=== PATIENT | male | born 1965 | race Caucasian/White ===

== ENCOUNTER 2017-01-01 16:15 | Emergency (ER) | payer OTHER ==
[~2017-01-01] VITALS: Ht 182.9 cm; Wt 113.4 kg
[2017-01-01 16:26] VITALS: TEMP 36.8; Ht 182.9 cm; Wt 113.4 kg
[2017-01-01] MEDS ORDERED: IBUPROFEN 600 MG TAB PO STA (17:05)
--- NOTE | 2017-01-01 17:16 | EMERGENCY ROOM VISIT NOTE ---
ED Visit Note First contact with patient: 16:58 CHIEF COMPLAINT: Wrist injury HISTORY OF PRESENT ILLNESS: This 51-year-old male patient presents to the emergency department with his , complaining of pain in the 8 hand and wrist after on outstretched hand approximately one week ago. The patient is able to move their wrist, but states with flexion he experiences numbness and tingling radiating into his hand. The patient states the pain is tingly and 6/10. No laceration, no weakness. The patient denies any other injury. The patient is able to move their fingers and elbow without difficulty. The patient has not had a previous fracture to this wrist, but states the discomfort is similar to that he experienced with hairline fracture of his left wrist. The patient has taken ibuprofen for the pain intermittently, which she states does help. 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 He has not worn any brace. The patient also complains of right- sided low back pain for several months. He states he does not have a PCP. The patient describes the discomfort as numbness and spasms on the right side, worse in the right buttock. He denies any injury. He denies any pain radiating down the legs. The patient denies any bladder or bowel dysfunction. He states the pain does improve slightly with ibuprofen. REVIEW OF SYSTEMS: A 6 system review of systems was performed with positives and pertinent negatives in the HPI. ALLERGIES: None MEDICATIONS: Prilosec PMH: deaf in left ear SOCIAL HISTORY: Patient was locally with family. He admits to chewing tobacco. The patient denies alcohol or drug use PHYSICAL EXAM: Vital Signs: Reviewed Nurse's notes, vital signs stable. GENERAL : This is a 51-year-old male, in no acute distress, but appears to be in pain, well-developed, well-nourished. NEURO: Alert and oriented to person place and time. Normal sensation to light and sharp touch. MUSCULOSKELETAL: There is no deformity of the right wrist. There is tenderness on the anterior aspect of the right wrist. Tinel's and Phalen's tests were positive. There is no snuff box tenderness. Range of motion is full. There is no tenderness of the elbow, hand or fingers. Build Master strength 5/5. Radial pulse 2+. There is tenderness of the right paraspinous muscles. There is no tenderness over the spine. Negative straight leg raising test bilaterally. Positive patellar reflexes bilaterally. SKIN: Normal and intact. The hand is warm and well perfused with capillary refill less than 2 seconds. RADIOLOGY: Right Wrist and Hand: R HAND MIN 3 VIEWS ROUTINE, R WRIST W/NAVICULAR MIN 3 VIEWS HISTORY: 51 years-old Male right hand pain s/p FOOSH acute right hand and wrist pain status post fall COMPARISON: None available TECHNIQUE: 3 views of right hand and 5 views of the right wrist FINDINGS: HAND: Cortical thickening involving the fifth metacarpal suggests healed remote fracture. No acute fracture or dislocation identified. Subcortical cystic changes are noted throughout the phalanges of the second digit. Mild multidigit interphalangeal degenerative changes. Subcortical cystic changes are also seen within the proximal lunate. Soft tissues are unremarkable. WRIST: Subcortical cystic changes are seen within the scaphoid and lunate. There is no acute fracture or dislocation, specifically the scaphoid appears intact. Minimal dorsal wrist soft tissue swelling. IMPRESSION: 1. Minimal dorsal wrist soft tissue swelling without acute fracture or dislocation of the right hand or wrist. 2. Mild degenerative changes as above including subcortical cystic changes of the proximal carpus. The above report was generated using voice recognition software. It may contain grammatical, syntax or spelling errors. Electronically signed by: Juancarlos Dickinson M.D. 01/01/2017 5:55 PM Dictated Date/Time: 01/01/2017 5:52 PM EMERGENCY DEPARTMENT COURSE: I examined the patient. The patient was given 600 mg ibuprofen. An X-ray of the right hand and wrist was reviewed by myself and radiologist and showed no acute fracture or dislocation. A wrist lacer splint was placed under my direction and the position was satisfactory. Neurovascular status rechecked and intact. The patient was discharged home in good condition. DIFFERENTIAL DIAGNOSIS: Fracture, contusion, sprain, strain, carpal tunnel syndrome, malignancy, and others DIAGNOSIS: Carpal tunnel syndrome, right wrist sprain, back strain DISCHARGE INSTRUCTIONS & TREATMENT: You have been treated in the Emergency Department for Back Pain and Carpal Tunnel syndrome, associated with wrist sprain. For pain control, you can use the following ongf-abw-xtpppoy medicines (if >12 yo): Ibuprofen(Motrin, Advil) may be used for fever or pain. Use 600mg every six hours as needed. Take with food. Avoid using more than 2400mg in a 24 hour period. Do not use 2400mg per day for more than three consecutive days without physician direction. Prolonged inappropriate use can lead to stomach upset or ulcers. (AND/OR) Acetaminophen(Tylenol) may be used for fever or pain. Use 1000mg every six hours as needed. Avoid using more than 3000mg in a 24 hour period. If this is an acute injury, ice can be applied to the area of pain for the first 3 days to help decrease pain and inflammation. After the first 3 days, a heating pad can be used over the area for continued soothing relief. You should use ice on the wrist to help with inflammation. You should also take ibuprofen as instructed for 2 weeks to help decrease inflammation. Wear the wrist splint as directed for the next 2 weeks while at work, and ongoing after that at night or when having flare-up of pain. You should schedule a follow-up appointment in 2-3 days with your Primary Care Provider for further evaluation and treatment of your back pain/carpal tunnel syndrome. Return to the Emergency Department if your current symptoms worsen despite treatment course outlined above, or if you develop any of the following symptoms : intractable pain despite aforementioned treatment course, loss of control of your bowel or bladder, numbness or tingling in your groin, or development of a fever. Current/Historical Medications No Active Prescriptions or Reported Meds Allergies Coded Allergies: No Known Allergies (Unverified , 01/01/17) Vital Signs Date Time Temp Pulse Resp B/P (MAP) Pulse Ox O2 Delivery O2 Flow Rate FiO2 01/01/17 18:41 65 16 173/97 98 01/01/17 16:26 36.8 72 18 181/110 97 Room Air Medications Administered Medications (Trade) Dose Ordered Sig/[place] Route Start Time Stop Time Status Last Admin Dose Admin Ibuprofen (Motrin Tab) 600 mg NOW STAT PO 01/01/17 17:05 01/01/17 17:07 DC 01/01/17 17:28 600 MG Departure Information Impression Primary Impression: Right wrist sprain Additional Impressions: Carpal tunnel syndrome Lumbago Dispostion Home / Self-Care Condition GOOD Prescriptions No Active Prescriptions or Reported Meds Patient Instructions ED Carpal Tunnel, ED Exercises Lumbar Muscles, ED Sprain Strain Lumbar, ED Sprain Wrist, [facility] Additional Instructions You have been treated in the Emergency Department for Back Pain and Carpal Tunnel syndrome, associated with wrist sprain. For pain control, you can use the following jvky-mls-gsccvmp medicines (if >12 yo): Ibuprofen(Motrin, Advil) may be used for fever or pain. Use 600mg every six hours as needed. Take with food. Avoid using more than 2400mg in a 24 hour period. Do not use 2400mg per day for more than three consecutive days without physician direction. Prolonged inappropriate use can lead to stomach upset or ulcers. (AND/OR) Acetaminophen(Tylenol) may be used for fever or pain. Use 1000mg every six hours as needed. Avoid using more than 3000mg in a 24 hour period. If this is an acute injury, ice can be applied to the area of pain for the first 3 days to help decrease pain and inflammation. After the first 3 days, a heating pad can be used over the area for continued soothing relief. You should use ice on the wrist to help with inflammation. You should also take ibuprofen as instructed for 2 weeks to help decrease inflammation. Wear the wrist splint as directed for the next 2 weeks while at work, and ongoing after that at night or when having flare-up of pain. You should schedule a follow-up appointment in 2-3 days with your Primary Care Provider for further evaluation and treatment of your back pain/carpal tunnel syndrome. Return to the Emergency Department if your current symptoms worsen despite treatment course outlined above, or if you develop any of the following symptoms : intractable pain despite aforementioned treatment course, loss of control of your bowel or bladder, numbness or tingling in your groin, or development of a fever. Work Instructions Return To Work: 1 day Problem Qualifiers Primary Impression: Right wrist sprain Encounter type: initial encounter Qualified Codes: S63.501A - Unspecified sprain of right wrist, initial encounter Additional Impressions: Carpal tunnel syndrome Laterality: bilateral Qualified Codes: G56.03 - Carpal tunnel syndrome, bilateral upper limbs Lumbago Chronicity: chronic Back pain laterality: right Sciatica presence: without sciatica Qualified Codes: M54.5 - Low back pain; G89.29 - Other chronic pain
--- NOTE | 2017-01-01 17:57 | DIAGNOSTIC IMAGING REPORT ---
R HAND MIN 3 VIEWS ROUTINE, R WRIST W/NAVICULAR MIN 3 VIEWS HISTORY: 51 years-old Male right hand pain s/p FOOSH acute right hand and wrist pain status post fall COMPARISON: None available TECHNIQUE: 3 views of right hand and 5 views of the right wrist FINDINGS: HAND: Cortical thickening involving the fifth metacarpal suggests healed remote fracture. No acute fracture or dislocation identified. Subcortical cystic changes are noted throughout the phalanges of the second digit. Mild multidigit interphalangeal degenerative changes. Subcortical cystic changes are also seen within the proximal lunate. Soft tissues are unremarkable. WRIST: Subcortical cystic changes are seen within the scaphoid and lunate. There is no acute fracture or dislocation, specifically the scaphoid appears intact. Minimal dorsal wrist soft tissue swelling. IMPRESSION: 1. Minimal dorsal wrist soft tissue swelling without acute fracture or dislocation of the right hand or wrist. 2. Mild degenerative changes as above including subcortical cystic changes of the proximal carpus. The above report was generated using voice recognition software. It may contain grammatical, syntax or spelling errors. Electronically signed by: Juancarlos Dickinson M.D. 01/01/2017 5:55 PM Dictated Date/Time: 01/01/2017 5:52 PM
[2017-01-01 18:41] VITALS: BP 173/97; PULSE 65; O2SAT 98
== END 2017-01-01 18:41 | disposition home or self-care (01) ==
LOC: C.EDB 16:17 → C.EDD 18:41
DX: S63.501A Unspecified sprain of right wrist, initial encounter (principal); G56.03 Carpal tunnel syndrome, bilateral upper limbs; M54.5 Low back pain; H91.92 Unspecified hearing loss, left ear

== ENCOUNTER 2017-04-04 10:31 | Emergency (ER) | payer OTHER ==
[~2017-04-04] VITALS: Ht 182.9 cm; Wt 101.0 kg
[2017-04-04 10:36] VITALS: Ht 182.9 cm; Wt 101.0 kg
[2017-04-04] MEDS ORDERED: GI COCKTAIL PO STA (11:04)
[2017-04-04] MEDS ORDERED: MoRPHine SULFATE 4 MG/ML 1 ML CARP\\VIAL IV STA (11:04)
[2017-04-04] MEDS ORDERED: ONDANSETRON INJ 2 MG/ML 2 ML VIAL IV STA (11:04)
[2017-04-04] MEDS ORDERED: PRLSR20 PO (11:06)
[2017-04-04] MEDS ORDERED: LIDOCAINE HCL 2% VISC SOLN 20 ML UDC ONE (11:15)
[2017-04-04] MEDS ORDERED: ALUMINUM/MAGNESIUM SUSP 30 ML UDC ONE (11:15)
[2017-04-04] MEDS ORDERED: FAMOTIDINE 20 MG TAB PO ONE (11:15)
--- NOTE | 2017-04-04 11:15 | EMERGENCY ROOM VISIT NOTE ---
History Report prepared by Debbie: Javier Guerra Under the Supervision of: Dr. Bertin Peterson M.D. First contact with patient: 10:41 Chief Complaint: ABDOMINAL PAIN Stated Complaint: STOMACH PAIN,SIDE PAIN History of Present Illness The patient is a 51 year old white male with a past medical history of leaf ear deafness, hypertension, and GERD who presents to the ED with a cc of sharp mid abdominal pain beginning last night. Positive right shoulder pain and dry heaving. Negative chest pain, shortness of breath, nausea, vomiting, burning to his mouth, and abnormal bowel symptoms. His pain is mildly exacerbated with eating. His last normal bowel movement was yesterday. He is only taking Prilosec everyday. He did not receive his flu shot. He denies any recent travel or antibiotic use. He has access to fully treated well water. The patient notes that he accidentally got antifreeze in his mouth a couple of days ago trying to siphon it through a hose. Source of History: patient Onset: yesterday Position: abdomen Symptom Intensity: moderate Quality: sharp Timing: constant Modifying Factors (Worsening): eating Associated Symptoms: No chest pain, No SOB, No nausea, No vomiting, No melena, No hematochezia, No diarrhea Note: He is experiencing some right shoulder pain and dry heaving. Review of Systems See HPI for pertinent positives and negatives. A total of ten systems were reviewed and were otherwise negative. Past Medical & Surgical Medical Problems: (1) GERD (gastroesophageal reflux disease) (2) HTN (hypertension) Family History No pertinent stated family history. Social History Smoking Status: Former Smoker Smokeless Tobacco Use: Yes Marital Status: Housing Status: lives with family Occupation Status: employed Current/Historical Medications Scheduled Omeprazole (Prilosec), 20 MG PO DAILY Omeprazole (Prilosec), 40 MG PO DAILY Scheduled PRN Ondansetron Hcl (Zofran), 4 MG PO Q8H PRN for Nausea Allergies Coded Allergies: No Known Allergies (Unverified , 04/04/17) Physical Exam Vital Signs Date Time Temp Pulse Resp B/P (MAP) Pulse Ox O2 Delivery O2 Flow Rate FiO2 04/04/17 13:11 74 20 148/98 98 04/04/17 12:30 64 04/04/17 12:17 36.8 64 18 133/93 98 Room Air 04/04/17 10:36 36.7 71 18 141/81 98 Room Air Physical Exam GENERAL: Awake, alert, well-appearing, NAD HENT: Normocephalic, atraumatic. Poor dentition. Difficulty hearing to the left ear. EYES: Normal conjunctiva. Sclera non-icteric. NECK: Supple. No nuchal rigidity. FROM. RESPIRATORY: CTAB, no rhonchi, wheezing, crackles CARDIAC: RRR, no MRG ABDOMEN: Soft, epigastric TTP, no other abdominal tenderness. Non surgical. ND, BS+ MSK: No chest wall TTP, no LE edema. Pain with external rotation of right shoulder. NEURO: GCS 15, CN 2-12 intact, moves all 4s on command SKIN: No rash or jaundice noted. Medical Decision & Procedures ER Provider Diagnostic Interpretation: Radiology results as stated below per my review and radiologist interpretation: R SHOULDER MIN 2 VIEWS ROUTINE CLINICAL HISTORY: Chronic right shoulder pain COMPARISON: None. DISCUSSION: There are mild degenerative changes present within the AC joint. No fractures or dislocations are visualized. No destructive lesions are evident. IMPRESSION: 1. No fractures or dislocations identified 2. No erosive or destructive lesions are visualized Electronically signed by: Sebastian Mejia M.D. 04/04/2017 11:53 AM Dictated Date/Time: 04/04/2017 11:53 AM KUB CLINICAL HISTORY: epigastric pain pain COMPARISON STUDY: No previous studies for comparison. FINDINGS: The soft tissues, psoas shadows, renal outlines and intestinal gas pattern appear normal. There is no evidence for bowel obstruction. No abnormal abdominal calcifications are seen. Negative chest IMPRESSION: Normal study. Negative chest and abdomen. The above report was generated using voice recognition software. It may contain grammatical, syntax or spelling errors. Electronically signed by: Tim Parikh M.D. 04/04/2017 12:04 PM Dictated Date/Time: 04/04/2017 12:03 PM CHEST ONE VIEW PORTABLE CLINICAL HISTORY: epigastric pain pain COMPARISON STUDY: No previous studies for comparison. FINDINGS: The bones soft tissues and hemidiaphragms are normal. The cardiomediastinal silhouette is normal. The lungs are clear. The pulmonary vasculature is normal. IMPRESSION: Negative chest. The above report was generated using voice recognition software. It may contain grammatical, syntax or spelling errors. Electronically signed by: Tim Parikh M.D. 04/04/2017 11:55 AM Dictated Date/Time: 04/04/2017 11:55 AM Laboratory Results 04/04/17 10:45 Red Blood Count 5.45, Mean Corpuscular Volume 83.5, Mean Corpuscular Hemoglobin 29.7, Mean Corpuscular Hemoglobin Concent 35.6, Mean Platelet Volume 10.3, Neutrophils (%) (Auto) 68.3, Lymphocytes (%) (Auto) 18.1, Monocytes (%) (Auto) 8.1, Eosinophils (%) (Auto) 5.5, Basophils (%) (Auto) 0.0, Neutrophils # (Auto) 3.86, Lymphocytes # (Auto) 1.02, Monocytes # (Auto) 0.46, Eosinophils # (Auto) 0.31, Basophils # (Auto) 0.00 04/04/17 10:45 Test 04/04/17 10:45 04/04/17 12:25 White Blood Count 5.65 K/uL (4.8-10.8) Red Blood Count 5.45 M/uL (4.7-6.1) Hemoglobin 16.2 g/dL (14.0-18.0) Hematocrit 45.5 % (42-52) Mean Corpuscular Volume 83.5 fL (80-100) Mean Corpuscular Hemoglobin 29.7 pg (25-34) Mean Corpuscular Hemoglobin Concent 35.6 g/dl (32-36) Platelet Count 180 K/uL (130-400) Mean Platelet Volume 10.3 fL (7.4-10.4) Neutrophils (%) (Auto) 68.3 % Lymphocytes (%) (Auto) 18.1 % Monocytes (%) (Auto) 8.1 % Eosinophils (%) (Auto) 5.5 % Basophils (%) (Auto) 0.0 % Neutrophils # (Auto) 3.86 K/uL (1.4-6.5) Lymphocytes # (Auto) 1.02 K/uL (1.2-3.4) Monocytes # (Auto) 0.46 K/uL (0.11-0.59) Eosinophils # (Auto) 0.31 K/uL (0-0.5) Basophils # (Auto) 0.00 K/uL (0-0.2) RDW Standard Deviation 38.4 fL (36.4-46.3) RDW Coefficient of Variation 12.9 % (11.5-14.5) Immature Granulocyte % (Auto) 0.0 % Immature Granulocyte # (Auto) 0.00 K/uL (0.00-0.02) Anion Gap 2.0 mmol/L (3-11) Est Creatinine Clear Calc Drug Dose 111.0 ml/min Estimated GFR () 103.2 Estimated GFR (Non- 89.1 BUN/Creatinine Ratio 12.1 (10-20) Calcium Level 8.9 mg/dl (8.5-10.1) Total Bilirubin 0.9 mg/dl (0.2-1) Direct Bilirubin 0.2 mg/dl (0-0.2) Aspartate Amino Transf (AST/SGOT) 39 U/L (15-37) Alanine Aminotransferase (ALT/SGPT) 68 U/L (12-78) Alkaline Phosphatase 94 U/L (45-117) Total Protein 8.0 gm/dl (6.4-8.2) Albumin 4.1 gm/dl (3.4-5.0) Lipase 286 U/L (73-393) Bedside Troponin I < 0.030 ng/ml (0-0.045) Laboratory results reviewed by me Medications Administered Medications (Trade) Dose Ordered Sig/[place] Route Start Time Stop Time Status Last Admin Dose Admin Ondansetron HCl (Zofran Inj) 4 mg NOW STAT IV 04/04/17 11:04 04/04/17 11:07 DC 04/04/17 11:22 4 MG Famotidine (Pepcid Tab) 20 mg NOW ONCE PO 04/04/17 11:15 04/04/17 11:16 DC 04/04/17 11:24 20 MG Morphine Sulfate (MoRPHine SULFATE INJ) 4 mg NOW STAT IV 04/04/17 11:04 04/04/17 11:07 DC 04/04/17 11:23 4 MG Lidocaine HCl (Viscous Lidocaine 2% Soln) 20 ml STK-MED ONCE .ROUTE 04/04/17 11:15 04/04/17 11:16 DC 04/04/17 11:23 20 ML Al Hydroxide/Mg Hydroxide (Maalox Susp) 30 ml STK-MED ONCE .ROUTE 04/04/17 11:15 04/04/17 11:16 DC 04/04/17 11:23 30 ML ECG Indication: abdominal pain Rate (beats per minute): 64 Rhythm: normal sinus Findings: other (Normal intervals, normal axis, no acute STS changes or TWI) ED Course 1041: The patient was evaluated in room C4. A complete history and physical exam was performed. 1217: We will check a POC troponin. 1300: I reevaluated the patient. Discussed results and discharge instructions: He verbalized understanding and agreement. The patient is ready for discharge. Medical Decision The patient is a 51 year old white male with a past medical history of leaf ear deafness, hypertension, and GERD who presents to the ED with a cc of sharp mid abdominal pain beginning last night. Positive right shoulder pain and dry heaving. Negative chest pain, shortness of breath, nausea, vomiting, burning to his mouth, and abnormal bowel symptoms. Differential diagnosis: Etiologies such as appendicitis, diverticulitis, PUD, biliary pathology, UTI, pancreatitis, obstruction, mesenteric ischemia, aortic pathology, infections, inflammatory bowel disease, renal colic, as well as others were entertained. Patient was seen and evaluated the bedside. Patient is complaining of some midabdominal pain that was beginning since last night. Patient has mild dry heaving. Patient denies any chest pain although he has has had some nonreproducible nonexertional left-sided chest pain. Patient does not have any family history of cardiac disease. Of note the patient does chew snuff when he is at work he does swallow his saliva. Patient does state that he has been on Prilosec in the past when he has run out. Patient did have blood work that was completed along with an EKG, chest x-ray, KUB, and troponin. Of note patient did complain of some chronic right shoulder pain and patient does have a positive empty can test likely related to a torn rotator. Patient was told he would likely need follow up as an outpatient and may require more advanced imaging and possible surgery if this becomes a more persistent issue. Patient is otherwise neurovascularly intact. Patient's blood work showed a normal white blood cell count. Patient did not have any anemia. Patient did have mild hyponatremia and hypokalemia. LFTs were fairly nondiagnostic only tracely elevated and lipase was within normal limits. Patient was told that he had mild hypokalemia and should increase potassium in his diet through potatoes or bananas. He can also take a multivitamin. Patient's EKG was nonischemic patient looked fairly comfortable. Patient was given recommendations for follow -up with primary care. Patient's POC troponin was negative. Patient's bicarbonate was normal I don't believe that this patient's siphoning of antifreeze has anything to do with his current complaints. Patient was deemed suitable for outpatient follow-up and treatment. Patient was given strict follow -up, discharge, and return precautions. All questions were answered. Patient was deemed suitable for outpatient follow-up at this time. Patient agreed with the plan of care and was safely discharged home. Medication Reconcilliation Current Medication List: was personally reviewed by me Blood Pressure Screening Patient's blood pressure: Elevated blood pressure Blood pressure disposition: Elevated BP felt to be situational Impression Primary Impression: Gastritis Additional Impressions: Shoulder pain Chest pain Hypokalemia Tobacco abuse counseling Scribe Attestation The scribe's documentation has been prepared under my direction and personally reviewed by me in its entirety. I confirm that the note above accurately reflects all work, treatment, procedures, and medical decision making performed by me. Departure Information Dispostion Home / Self-Care Prescriptions Ondansetron Hcl (ZOFRAN) 4 Mg Tab 4 MG PO Q8H Y for Nausea, #6 TAB Prov: Bertin Peterson M.D. 04/04/17 Omeprazole (PRILOSEC) 40 Mg Cap 40 MG PO DAILY for 30 Days, #30 CAP Prov: Bertin Peterson M.D. 04/04/17 Referrals No Doctor, Assigned (PCP) Forms Call Back Authorization, HOME CARE DOCUMENTATION FORM, IMPORTANT VISIT INFORMATION Patient Instructions ED PUD Vs Gastritis, ED Shoulder Pain [facility], [facility] Additional Instructions Please return to the emergency department if you have worsening or recurrent symptoms not amenable to at-home treatment. Please call for a follow-up appointment with her primary care physician. Please take your medications as prescribed. If you have other concerns and/or complaints please feel free to also call your primary care physician's office or return the ED for further evaluation, management, and treatment. You were found to have an elevated blood pressure today (>120 sytolic or >90 diastolic). Per medicare guidelines, you need to follow up with this blood pressure screening with your Primary Care Physician (PCP). For a new PCP call [phone]. You received narcotic or benzodiazepene medication while in the emergency room today. This is an addictive medication that may cause drowziness as well as constipation. Do not drive, operate heavy machinery, or drink alcohol under the influence of this medication. You may take tylenol 1000 mg every 6 hours as needed for pain. Avoid NSAIDs. Also consider tobacco cessation. Consider avoiding spicy, citrus, chocolate, peppermint. Avoid large meals. Also avoid lying down after meals. Take your medications as prescribed. You have been examined and treated today on an emergency basis only. This is not a substitute for, or an effort to provide, complete comprehensive medical care. It is impossible to recognize and treat all injuries or illnesses in a single emergency department visit. It is therefore important that you follow up closely with [facility], your PCP, and/or your specialist(s). Call as soon as possible for an appointment. Thank you for your time and consideration. I look forward to speaking with you again soon. Please don't hesitate to call us if you have any questions. Problem Qualifiers Primary Impression: Gastritis Gastritis type: unspecified gastritis Chronicity: unspecified Gastritis bleeding: presence of bleeding unspecified Qualified Codes: K29.70 - Gastritis, unspecified, without bleeding Additional Impressions: Shoulder pain Chronicity: chronic Laterality: right Qualified Codes: M25.511 - Pain in right shoulder; G89.29 - Other chronic pain Chest pain Chest pain type: unspecified Qualified Codes: R07.9 - Chest pain, unspecified
[2017-04-04 11:18] LABS: EOS % 5.5 %; EOS ABS # 0.31 K/uL (0-0.5); HEMATOCRIT 45.5 % (42-52); HEMOGLOBIN 16.2 g/dL (14.0-18.0); LYMPH % 18.1 %; LYMPH ABS # 1.02 K/uL (1.2-3.4); MEAN CELL VOLUME 83.5 fL (80-100); MEAN CORPUSCULAR HEMOGLOBIN 29.7 pg (25-34); MEAN CORPUSCULAR HGB CONC 35.6 g/dl (32-36); MEAN PLATELET VOLUME 10.3 fL (7.4-10.4); MONO % 8.1 %; MONO ABS # 0.46 K/uL (0.11-0.59); NEUT % 68.3 %; NEUT ABS # 3.86 K/uL (1.4-6.5); PLATELET COUNT 180 K/uL (130-400); RED CELL DISTRIBUTION WIDTH CV 12.9 % (11.5-14.5); RED CELL DISTRIBUTION WIDTH SD 38.4 fL (36.4-46.3); WHITE BLOOD COUNT 5.65 K/uL (4.8-10.8)
[2017-04-04 11:26] LABS: ALBUMIN 4.1 gm/dl (3.4-5.0); CALCIUM 8.9 mg/dl (8.5-10.1); CREATININE 0.99 mg/dl (0.60-1.40); POTASSIUM 3.4 mmol/L (3.5-5.1)
--- NOTE | 2017-04-04 11:55 | DIAGNOSTIC IMAGING REPORT ---
R SHOULDER MIN 2 VIEWS ROUTINE CLINICAL HISTORY: Chronic right shoulder pain COMPARISON: None. DISCUSSION: There are mild degenerative changes present within the AC joint. No fractures or dislocations are visualized. No destructive lesions are evident. IMPRESSION: 1. No fractures or dislocations identified 2. No erosive or destructive lesions are visualized Electronically signed by: Sebastian Mejia M.D. 04/04/2017 11:53 AM Dictated Date/Time: 04/04/2017 11:53 AM
--- NOTE | 2017-04-04 11:57 | DIAGNOSTIC IMAGING REPORT ---
CHEST ONE VIEW PORTABLE CLINICAL HISTORY: epigastric pain pain COMPARISON STUDY: No previous studies for comparison. FINDINGS: The bones soft tissues and hemidiaphragms are normal. The cardiomediastinal silhouette is normal. The lungs are clear. The pulmonary vasculature is normal. IMPRESSION: Negative chest. The above report was generated using voice recognition software. It may contain grammatical, syntax or spelling errors. Electronically signed by: Tim Parikh M.D. 04/04/2017 11:55 AM Dictated Date/Time: 04/04/2017 11:55 AM
--- NOTE | 2017-04-04 12:05 | DIAGNOSTIC IMAGING REPORT ---
KUB CLINICAL HISTORY: epigastric pain pain COMPARISON STUDY: No previous studies for comparison. FINDINGS: The soft tissues, psoas shadows, renal outlines and intestinal gas pattern appear normal. There is no evidence for bowel obstruction. No abnormal abdominal calcifications are seen. Negative chest IMPRESSION: Normal study. Negative chest and abdomen. The above report was generated using voice recognition software. It may contain grammatical, syntax or spelling errors. Electronically signed by: Tim Parikh M.D. 04/04/2017 12:04 PM Dictated Date/Time: 04/04/2017 12:03 PM
[2017-04-04 12:17] VITALS: TEMP 36.8
[2017-04-04] MEDS ORDERED: OMEP40CA41 PO (12:22)
[2017-04-04] MEDS ORDERED: ONDA4TAB46 PO (12:22)
[2017-04-04 13:11] VITALS: BP 148/98; PULSE 74; O2SAT 98
== END 2017-04-04 13:12 | disposition home or self-care (01) ==
LOC: C.EDB 10:32 → C.EDC 13:12
DX: K29.70 Gastritis, unspecified, without bleeding (principal); M25.511 Pain in right shoulder; G89.29 Other chronic pain; R07.89 Other chest pain; E87.6 Hypokalemia; Z71.6 Tobacco abuse counseling; F17.220 Nicotine dependence, chewing tobacco, uncomplicated; K21.9 Gastro-esophageal reflux disease without esophagitis; I10 Essential (primary) hypertension; H91.92 Unspecified hearing loss, left ear

== ENCOUNTER 2021-11-29 05:52 | Observation (INO) ==
--- NOTE | 2021-10-11 14:16 | Anesthesiology Consultation ---
Date of Service October 11, 2021 Assessment & Plan (1) Encounter for pre-operative examination: Chart Review Chart Review: Acceptable Risk for Surgery (pending preop Covid testing results and DOS labs ) and Patient NOT seen in Pre Admission Testing -Will recheck CBC with diff (>30 days old) and PRP (hypokalemia- recently started on K supplement by PCP 09/19/21) on DOS - Check BSG AM DOS Per nursing assessment 09/30/2021, patient denies any recent travel. No known COVID infection in the past 90 days. Patient is fully vaccinated for COVID. No known Covid positive exposures or Covid related symptoms. Preop Covid testing 10/11/21= results pending Last seen by PCP 09/19/2021 = aware of right kidney massaware of surgery scheduled 10/13/2021. Started on potassium supplement for hypokalemia. Levothyroxine increased due to elevated TSH. We will start hydrochlorothiazide for hypertension. Discussed recent [id number] will improve diet. Follow-up in 1 month. History Surgery Operation Date: 10/13/21 07:30 Proposed Procedures p Robotic Laparoscopic Assited Partial Nephrectomy (Right Side) - Alvin Boogie MD Height/Weight Height: 6 ft Weight: 107.955 kg Allergies Allergy/AdvReac Type Severity Reaction Status Date / Time No Known Allergies Allergy Unverified 09/30/21 15:01 Medications Home Medications Medication Instructions Recorded Confirmed Last Taken amlodipine 10 mg tablet 10 mg PO DAILY #90 tab 09/19/21 09/30/21 Unknown aspirin 81 mg tablet,delayed 81 mg PO DAILY #90 tab 09/19/21 09/30/21 Unknown release atorvastatin 40 mg tablet 40 mg PO DAILY #90 tab 09/19/21 09/30/21 Unknown hydrochlorothiazide 12.5 mg tablet 12.5 mg PO DAILY #30 tab 09/19/21 09/30/21 Unknown levothyroxine 125 mcg tablet 125 mcg PO DAILY #30 tab 09/19/21 09/30/21 Unknown lisinopril 40 mg tablet 40 mg PO DAILY #90 tab 09/19/21 09/30/21 Unknown meloxicam 7.5 mg tablet 7.5 mg PO DAILY #14 tab 09/19/21 09/30/21 Unknown potassium chloride 10 mEq 10 meq PO DAILY #30 tab 09/19/21 09/30/21 Unknown tablet,extended release (Klor-Con) pantoprazole 40 mg tablet,delayed 40 mg PO DAILY #30 tab 10/04/21 Unknown release Past Medical History Medical History Borderline diabetic Hgb A1C 6.6 on 08/18/21 GERD (gastroesophageal reflux disease) Hyperlipidemia Hypertension Hypothyroid Renal mass, right Past Family History Family History Sister Breast cancer Cancer Heart disease Father Cancer Myocardial infarction Heart disease Mother Cancer Denies family history of Ovarian cancer Prostate cancer Lung cancer Hypertension Stroke Past Surgical History Surgical History S/P ear surgery left x 5; deaf in left ear Social History Smoking Status: Never smoker tobacco type: smokeless tobacco Do You Dip or Chew Tobacco: Yes (advised) Hx Alcohol Use: No Hx Substance Use: No substance use type: does not use Lab Results Anesthesia Preop Results Results Anesthesia Widget: WBC 4.96 K/uL (4.8-10.8) 09/01/21 Hgb 14.8 g/dL (14.0-18.0) 09/01/21 Hct 42.8 % (42-52) 09/01/21 Plt 198 K/uL (130-400) 09/01/21 Na 137 mmol/L (136-145) 09/01/21 K 3.2 mmol/L (3.5-5.1) L 09/01/21 Cl 102 mmol/L (98-107) 09/01/21 CO2 28 mmol/L (21-32) 09/01/21 BUN 11 mg/dl (6-23) 09/01/21 Creat 0.87 mg/dl (0.6-1.4) 09/01/21 Glucose Level 138 mg/dl (70-99(Fasting)) H 09/01/21 TSH 11.642 uIu/ml (0.300-4.500) H 08/18/21 Free T4 0.79 ng/dl (0.61-1.60) 08/18/21 HA1c 6.6 % (4.5-5.6) H 08/18/21 Testing Laboratory Results Hypokalemia - PCP aware and started K supplement (will recheck PRP DOS) PCP aware of elevated TSH per 09/19/21 PCP note- levothyroxine dose increased Electrocardiogram Date: 08/18/21 SR at 97bpm. Nonspecific T wave abnormality per confirming provider Other Testing Abdomen/Pelvis CT 09/01/21= There is a 3.8 cm enhancing mass lesion in the upper pole of the right kidney. Renal cell carcinoma is the diagnosis of exclusion. Follow-up with urology is recommended. There is no evidence of metastatic disease in the abdomen or pelvis. Mild hepatic steatosis. Otherwise unremarkable CT scan of the liver. Cholelithiasis. Prostatomegaly.
--- NOTE | 2021-11-22 09:43 | Anesthesiology Consultation ---
Date of Service November 22, 2021 Assessment & Plan (1) Encounter for pre-operative examination: Chart Review Chart Review: Acceptable Risk for Surgery and Patient NOT seen in Pre Admission Testing Consults Requested none History Surgery Operation Date: 10/13/21 07:30 Proposed Procedures p Robotic Laparoscopic Assited Partial Nephrectomy (Right Side) - Alvin Boogie MD Operation Date: 11/29/21 07:30 Proposed Procedures p Laparoscopic Hand Assisted Nephrectomy - Alvin Boogie MD Height/Weight Height: 6 ft Weight: 107.955 kg Allergies Allergy/AdvReac Type Severity Reaction Status Date / Time No Known Allergies Allergy Unverified 10/26/21 15:13 Medications Home Medications Medication Instructions Recorded Confirmed Last Taken amlodipine 10 mg tablet 10 mg PO DAILY #90 tabs 09/19/21 10/26/21 Unknown aspirin 81 mg tablet,delayed 81 mg PO DAILY #90 tabs 09/19/21 10/26/21 Unknown release atorvastatin 40 mg tablet 40 mg PO DAILY #90 tabs 09/19/21 10/26/21 Unknown hydrochlorothiazide 12.5 mg tablet 12.5 mg PO DAILY #30 tabs 09/19/21 10/26/21 Unknown lisinopril 40 mg tablet 40 mg PO DAILY #90 tabs 09/19/21 10/26/21 Unknown meloxicam 7.5 mg tablet 7.5 mg PO DAILY #14 tabs 09/19/21 10/26/21 Unknown potassium chloride 10 mEq 10 meq PO DAILY #30 tabs 09/19/21 10/26/21 Unknown tablet,extended release (Klor-Con) pantoprazole 40 mg tablet,delayed 40 mg PO DAILY #30 tabs 10/04/21 10/26/21 Unknown release levothyroxine 150 mcg tablet 150 mcg PO DAILY #30 tabs 11/21/21 Unknown Past Medical History Medical History Borderline diabetic Hgb A1C 6.6 on 08/18/21 GERD (gastroesophageal reflux disease) Hyperlipidemia Hypertension Hypothyroid Renal mass, right Past Family History Family History Sister Breast cancer Cancer Heart disease Father Cancer Myocardial infarction Heart disease Mother Cancer Denies family history of Ovarian cancer Prostate cancer Lung cancer Hypertension Stroke Past Surgical History Surgical History S/P ear surgery left x 5; deaf in left ear Social History Smoking Status: Never smoker tobacco type: smokeless tobacco Do You Dip or Chew Tobacco: Yes (advised) Hx Alcohol Use: No Hx Substance Use: No substance use type: does not use Testing Laboratory Results Laboratory Tests 11/15/21 11/15/21 08:06 08:06 WBC 6.21 Hgb 14.3 Hct 42.1 Plt Count 300 Sodium 137 Potassium 3.7 Chloride 100 Carbon Dioxide 32 BUN 12 Creatinine 0.80 Glucose 123 H Electrocardiogram Date: 08/18/21 SR at 97bpm. Nonspecific T wave abnormality per confirming provider Chest X-Ray Date: 10/11/21 XR chest 2V PA/lateral CLINICAL HISTORY: N20.0 - Calculus of kidney. Evaluate cardiopulmonary status COMPARISON STUDY: 04/04/2018 TECHNIQUE: 2 views of the chest FINDINGS: Frontal and lateral radiographs of the chest demonstrate the cardiomediastinal silhouette to be within normal limits. The lungs are clear of alveolar opacities. There is no evidence for effusion bilaterally. There is no evidence for vascular congestion. There is no acute osseous pathology. IMPRESSION: 1. No acute cardiopulmonary disease. Other Testing Abdomen/Pelvis CT 09/01/21= There is a 3.8 cm enhancing mass lesion in the upper pole of the right kidney. Renal cell carcinoma is the diagnosis of exclusion. Follow-up with urology is recommended. There is no evidence of metastatic disease in the abdomen or pelvis. Mild hepatic steatosis. Otherwise unremarkable CT scan of the liver. Cholelithiasis. Prostatomegaly.
[~2021-11-29 05:52] MED LIST: LR 15ML/HR IV SCH; ceFAZolin 2000MG 2,000 MG/15 ML SYR IV SCH
[2021-11-29] MEDS ORDERED: LR 15ML/HR IV SCH (06:00)
[2021-11-29] MEDS ORDERED: ceFAZolin 2000MG 2,000 MG/15 ML SYR IV SCH (06:00)
[2021-11-29] MEDS ORDERED: MIDAZOLAM HCL 1 MG/ML 2ML VIAL ONE (06:39)
[2021-11-29] MEDS ORDERED: fentaNYL citrate 100 MCG/2 ML VIAL ONE ×2 (06:39→11:04)
[2021-11-29] MEDS ORDERED: PROPOFOL IV EMULSION 10 MG/ML 20 ML VIAL IV ONE ×2 (06:39→11:45)
[2021-11-29] MEDS ORDERED: ONDANSETRON INJ 2 MG/ML 2 ML VIAL ONE ×2 (06:39→11:27)
[2021-11-29] MEDS ORDERED: DEXAMETHASONE SOD INJ 4 MG/ML VIAL ONE (06:39)
[2021-11-29] MEDS ORDERED: LIDOCAINE 2% MPF LOCAL 5 ML VIAL INFIL ONE (06:39)
[2021-11-29] MEDS ORDERED: SODIUM CHLORIDE 0.9% INJ 10 ML VIAL ONE (06:41)
[2021-11-29] MEDS ORDERED: ROCURONIUM BROMIDE 10 MG/ML 5 ML VIAL IV ONE ×2 (06:41→08:01)
--- NOTE | 2021-11-29 06:41 | History & Physical Report ---
Date of Service November 29, 2021 Assessment & Plan (1) Renal mass, right: Plan: We reviewed the plan for right-sided hand-assisted laparoscopic radical nephrectomy. We reviewed the risks and benefits of this approach. He expressed understanding and agreed to proceed with surgery. History of Present Illness Primary Care Provider: Israel Casey DO This is a 56-year-old male with history of incidentally discovered right-sided renal mass. He was seen in the urology office for discussion of removal. He presents to the OR today for hand-assisted laparoscopic right radical nephrectomy. He denies any changes in his overall health since we saw him in the office. Allergies Allergy/AdvReac Type Severity Reaction Status Date / Time No Known Allergies Allergy Unverified 11/29/21 06:12 Home Medications Medication Instructions Recorded Confirmed Type aspirin 81 mg tablet,delayed 81 mg PO DAILY #90 tabs 09/19/21 11/29/21 Rx release hydrochlorothiazide 12.5 mg tablet 12.5 mg PO DAILY #30 tabs 09/19/21 11/29/21 Rx lisinopril 40 mg tablet 40 mg PO DAILY #90 tabs 09/19/21 11/29/21 Rx potassium chloride 10 mEq 10 meq PO DAILY #30 tabs 09/19/21 11/29/21 Rx tablet,extended release (Klor-Con) levothyroxine 150 mcg tablet 150 mcg PO DAILY #30 tabs 11/21/21 11/29/21 Rx amlodipine 10 mg tablet (Norvasc) 10 mg PO DAILY 11/29/21 11/29/21 History atorvastatin 40 mg tablet (Lipitor) 40 mg PO DAILY 11/29/21 11/29/21 History meloxicam 7.5 mg tablet (Mobic) 7.5 mg PO DAILY 11/29/21 11/29/21 History pantoprazole 40 mg tablet,delayed 40 mg PO DAILY 11/29/21 11/29/21 History release (Protonix) Past Med/Surg History Medical History Borderline diabetic Hgb A1C 6.6 on 08/18/21 GERD (gastroesophageal reflux disease) Hyperlipidemia Hypertension Hypothyroid Renal mass, right Surgical History S/P ear surgery left x 5; deaf in left ear Family History Sister Breast cancer Cancer Heart disease Father Cancer Myocardial infarction Heart disease Mother Cancer Denies family history of Ovarian cancer Prostate cancer Lung cancer Hypertension Stroke Social History Smoking Status: Never smoker Second Hand Exposure: No; Do You Dip or Chew Tobacco: Yes (advised); Tobacco Cessation Education Requested by Patient: No Hx Alcohol Use: No Hx Substance Use: No Preferred Language: Iraqi Communication Ability: Effective Visual Impairment: Limited Ginseng Farmer Required: No Beliefs That Will Affect Care: None marital status: Current Living Situation: Significant Other current occupational status: unemployed How many Children do You have: 2 Other Information That Helps Us Care for You: No Feels Safe at Home: Yes Safety Concerns: Feels Safe At This Time Childhood Exposure to Second-Hand Smoke: No caffeine: Yes Dental Care, Regularly: Yes Seatbelt Use: always Sunscreen Use: No Assistive Devices: Cane and Glasses Assistive Devices Comment: READING GLASSES Review of Systems 14 point review of systems negative except for otherwise indicated. Physical Exam Constitutional: well developed and well nourished; no acute distress Eyes: + anicteric sclerae; pupils not irregular Respiratory: normal respiratory effort; no respiratory distress, does not use accessory muscles and no cough Cardiovascular: well perfused Gastrointestinal (Abdomen): Inspection/Auscultation: abdomen normal to inspection; abdomen not distended Musculoskeletal: Extremities: extremities normal to inspection Skin: normal turgor; no rashes and no lesions Neurologic: moves all extremities and awake Psychiatric: Orientation: alert and oriented x 3 Results & Data ([facility]) Vital Signs (Past 12 Hours) Vital Signs Temp Pulse Resp BP Pulse Ox O2 Del Method 11/29/21 06:16 36.6 C 91 H 20 164/106 H 98 Room Air
[2021-11-29] MEDS ORDERED: KETAMINE 50 MG/5 ML SYRINGE ONE (06:42)
[2021-11-29] MEDS ORDERED: ACETAMINOPHEN 1000 MG/100 ML IV IV ONE (06:44)
[2021-11-29] MEDS ORDERED: ATROPINE SULFATE 0.1 MG/ML 10ML SYR IV PRN (07:01)
[2021-11-29] MEDS ORDERED: ONDANSETRON INJ 2 MG/ML 2 ML VIAL IV PRN ×2 (07:01→14:00)
[2021-11-29] MEDS ORDERED: ePHEDrine sulfate 50 MG/ML AMP IV PRN (07:01)
[2021-11-29] MEDS ORDERED: BUPIVACAINE 0.5 % 5 MG/1 ML MPF 30ML VIAL ONE (07:34)
[2021-11-29] MEDS ORDERED: HYDROmorphone INJ 2 MG/ML SYR/VIAL ONE (08:14)
[2021-11-29] MEDS ORDERED: ePHEDrine sulfate 50 MG/ML SYR ONE (09:24)
[2021-11-29] MEDS ORDERED: PHENYLEPHRINE 100MCG/ML 5ML SYR ONE (09:24)
[2021-11-29] MEDS ORDERED: FLOSEAL HEMOSTATIC MATRIX 10ML TOP ONE (11:24)
[2021-11-29] MEDS ORDERED: SURGICEL ABSORB HEMOSTAT 2IN X 14IN TOP ONE ×3 (11:24)
[2021-11-29] MEDS ORDERED: GLYCOPYRROLATE 0.2 MG/ML VIAL ONE (11:26)
[2021-11-29] MEDS ORDERED: NEOSTIGMINE METHYLSULFATE 1 MG/ML 10ML VIAL ONE (11:26)
[2021-11-29] MEDS ORDERED: ESMOLOL HCL INJ 10 MG/ML 10ML VIAL IV ONE (11:52)
[2021-11-29] MEDS ORDERED: LABETALOL HCL IV 5 MG/ML 20ML IV ONE (12:08)
[2021-11-29] MEDS: fentaNYL citrate 100 MCG/2 ML VIAL IV PRN ×4 (12:18→12:44)
[2021-11-29 12:28] LABS: Hematocrit (blood only) 41.1 % (40.1-51.0); Hemoglobin 13.9 g/dl (14.0-18.0); Mean Corpuscular Hemoglobin 29.1 pg (25.0-34.0); Mean Corpuscular Hgb Conc 33.8 g/dL (32.0-36.0); Mean Platelet Volume 10.3 fL (9.4-12.4); Platelet Count 225 K/uL (130-400); RDW Standard Deviation 40.4 fL (36.4-46.3); Red Blood Count 4.78 M/uL (4.63-6.08); White Blood Count 12.94 K/ul (4.8-10.8)
--- NOTE | 2021-11-29 12:28 | Operative Report ---
PG Post Operative Report Pre & Post Diagnosis Operation Date: 11/29/21 07:30 Pre-Op Diagnosis: Right Renal Mass Post-Op Diagnosis: Right Renal Mass I identified the patient and participated in the time-out.: Yes Procedure Operation Date: 11/29/21 07:30 Actual Procedures p Right Side Laparoscopic Hand Assisted Nephrectomy(Right) - Alvin Boogie MD Surgeon Alvin Boogie MD Air And Water Tester ELSA Griffith. Jez Fernandez MD. Estimated Blood Loss 50 Findings Consistent with Post-Op Diagnosis Specimens Right kidney Drains Arguello catheter per urethra Anesthesia Type General Complications none Disposition Accompanied Patient To Recovery: Yes Disposition: Recovery Room Indications This is a 56-year-old male recently seen in the urology office for an incidentally discovered right-sided renal mass. After thorough discussion of management options, he presents to the OR today for hand-assisted right radical nephrectomy. Description of Procedure The patient was identified in the preoperative holding area and informed consent was confirmed. He was then brought to the operating room where general anesthesia was initiated. He was placed on the operating table in a flank position with the right flank elevated. All pressure points were carefully padded, and he was secured to the table using tape. His abdomen was prepped and draped in the usual sterile fashion a timeout was then performed. In the right lower quadrant, a 7 cm incision was marked along the natural lines of the skin. The incision was made sharply and then dissection was carried down using cautery to expose the external oblique fascia. This was then incised and dissection was carried down to the peritoneum. Peritoneum was entered sharply with scissors and the incision was then extended. The underlying viscera were inspected to ensure there was no injury. The incision was then fitted with the GelPort and insufflation was initiated to 15 mmHg. The laparoscopic camera was inserted by the GelPort and the abdomen was surveyed. Appropriate positions for the 2 additional ports were identified, one was above the umbilicus and one was just lateral. I removed the laparoscopic camera and then inserted my hand via the GelPort. 12 mm ports were placed in each of the locations using tactile feedback and using my hand to exclude any intra-abdominal organs. Dissection began by reflecting the colon along the white line of Toldt. This exposed the anterior surface of the right kidney at the level of Gerota's fascia. There were few adhesions between the peritoneum and the liver edge which were divided with the harmonic scalpel. The duodenum was kocherized and dissection was carried down toward the pelvis. Off of the lower pole of the kidney fascia was incised to identify first the right gonadal vein and the right ureter. Using upward tension, the posterior to the kidney was cleared up as well as some of the lymphatic adhesions medially. The renal hilum was next identified. He had 1 artery and 1 vein, although the vein appeared to have a somewhat early branch. Once an appropriate window was identified behind the vessels, an Hosford stapler was inserted with a 45 mm vascular load. The hilum was divided en bloc. A second staple load was used to along the contour of the kidney with a goal of leaving the right adrenal gland behind. At this point a continued dissection using the harmonic scalpel but came into some bleeding, possibly from an adrenal vessel. An additional staple load was used to come across this area angling toward the upper pole of the kidney. 1 final staple load was used to continue dividing some of the lymphatic fat tissue near the upper pole of the kidney. At this point there was good hemostasis. The lateral attachments of the kidney the abdominal wall were then freed up as were the posterior attachments. The ureter was clipped and divided. At this point the kidney was completely free. The wound bed was inspected and there was good hemostasis. Surgicel and Floseal were applied to the hilar area as well as some of the upper pole lymphatic/fatty tissue. Final inspection identified no other bleeding and no areas of concern. The kidney was then extracted through the HandPort and sent for analysis labeled as right kidney. The incision was closed in the following fashion. The peritoneum was reapproximated using running 3-0 Vicryl suture. The external oblique fascia was then closed using interrupted 0 Vicryl [id number] sutures. Half percent Marcaine was used to anesthetize the external oblique fascia as well as the skin edges of the incisions. A running 3-0 Vicryl suture was used to reapproximate the subcutaneous fat. The skin was closed with a running subcutaneous 4-0 Monocryl. The 2 other port sites were closed with a deep 0 Vicryl suture and buried interrupted 4-0 Monocryl sutures. All incisions were cleaned and dried and a layer of Dermabond was applied. At this point the patient was awakened from general anesthesia and was brought to the recovery room in stable condition. All sponge and instrument counts were correct at the end the case. Of note, Erika Song assisted for the start of the case, holding the camera. For stapling the hilum, Jez Fernandez took over as customer relations assistant and held the camera and assisted with closing the incisions. I attest to the content of the Intraoperative Record and any orders documented therein. Any exceptions are noted below.
[2021-11-29 12:44] LABS: Basophils # (auto) 0.02 K/uL (0-0.2); Basophils % (auto) 0.2 %; Echinocytes 1+; Eosinophils # (auto) 0.04 K/uL (0-0.50); Eosinophils % (auto) 0.3 %; Immature Granulocytes # (auto) 0.06 K/uL (0.00-0.02); Immature Granulocytes % (auto) 0.5 %; Lymphocytes % (auto) 3.9 %; Monocytes # (auto) 0.16 K/uL (0.24-0.82); Monocytes % (auto) 1.2 %; Neutrophils # (auto) 12.16 K/uL (1.4-6.5); Neutrophils % (auto) 93.9 %; Toxic Vacuolation 1+
[2021-11-29 12:54] LABS: BUN Creatinine Ratio 9.3 (10-20); Calcium 8.9 mg/dl (8.5-10.1); Est GFR (African American) 90.7 ml/min; Est GFR (Non-African American) 78.3 ml/min; Potassium 3.5 mmol/L (3.5-5.1)
[2021-11-29] MEDS: HYDROmorphone INJ 0.5 MG/0.5 ML SYR IV PRN ×2 (12:55→17:26)
[2021-11-29] MEDS ORDERED: HYDROmorphone INJ 1 MG/ML SYRINGE ONE (12:56)
--- NOTE | 2021-11-29 13:09 | Anesthesiology Progress Note ---
Date of Service November 29, 2021 Anesthesia Post Procedure Vital Signs Vital Signs: Temp Pulse Pulse Resp BP Pulse Ox O2 Del Method 11/29/21 13:00 93 H 15 162/88 H 96 Room Air 11/29/21 12:50 89 15 153/86 H 95 Room Air 11/29/21 12:40 98.2 F 95 H 16 160/82 H 96 Room Air 11/29/21 12:30 88 18 150/85 H 98 Room Air 11/29/21 12:20 82 20 153/83 H 98 Room Air 11/29/21 12:10 80 18 159/95 H 100 Oxymask 11/29/21 12:03 97.9 F 86 16 149/100 H 100 Oxymask 11/29/21 06:16 97.9 F 91 H 20 164/106 H 98 Room Air O2 Flow Rate 11/29/21 13:00 11/29/21 12:50 11/29/21 12:40 11/29/21 12:30 11/29/21 12:20 11/29/21 12:10 4 11/29/21 12:03 6 11/29/21 06:16 Pain Intensity Lower Back: Pain Intensity: 7 Right Abdomen: Pain Intensity: 6 Transfer of Care Handoff Completed per policy Notes Mental Status: alert / awake / arousable and participated in evaluation Patient Amnestic to Procedure: Yes Nausea / Vomiting: adequately controlled Pain: adequately controlled Airway Patency, RR, SpO2: stable & adequate BP & HR: stable & adequate Hydration State: stable & adequate Anesthetic Complications: no major complications apparent and Pt Satisfied with anesthetic care
[2021-11-29] MEDS ORDERED: oxyCODONE HCL IR 5 MG TAB (IMMEDIATE RELEASE) PO PRN ×2 (14:00)
[2021-11-29] MEDS ORDERED: HYDROmorphone INJ 0.5 MG/0.5 ML SYR IV PRN ×2 (14:00)
[2021-11-29] MEDS ORDERED: PHARMACY GLYCEMIC MGMT CONSULT PRN (14:00)
[2021-11-29] MEDS: LACTATED RINGER'S 1,000 ML IV SCH ×2 (14:27→23:39)
--- NOTE | 2021-11-29 14:29 | Pharmacy Report ---
Pharmacy Glycemic Short Note 2 - Date of Service November 29, 2021 - Glycemic Short BSG Results (Last 24 hours): 11/29/21 11/29/21 06:08 12:16 Glucose 208 H POC Glucose 147 H OUTPATIENT ANTIDIABETIC REGIMEN: * None * HbA1c was 6.6% on 08/18/21 * Repeat A1c tomorrow AM ASSESSMENT: * 56 yo M admitted status post right nephrectomy this morning. Pharmacy has been consulted to assist with inpatient glycemic management. Patient appears to have T2DM per last A1c that is currently diet controlled. * Fasting BSG 147 mg/dL this AM. Postop serum BSG was 208 mg/dL. Patient did appear to received 4 mg of IV dexamethasone perioperatively. No further steroids are ordered. * Will give a one-time dose of basal 0.2 units/kg to cover for steroids. Unsure if patient will require ongoing basal order. Novolog started based on weight/stress of 2. PLAN FOR INPATIENT GLYCEMIC CONTROL: * Basal insulin * Lantus 20 units SC x 1 * Bolus insulin * NovoLog per scale ACHS or Q6hrs while NPO * Goal Range: Low 110 mg/dL - High 140 mg/dL * Correction Factor: 25 mg/dL/unit * Nutritional / Prandial insulin per carb ratio of 1 unit per 8 grams CHO consumed
[2021-11-29] MEDS ORDERED: LANTUS PER UNIT CHARGE SQ ONE (14:30)
[2021-11-29] MEDS ORDERED: CARBOHYDRATES FOR HYPOGLYCEMIA PO PRN (14:30)
[2021-11-29] MEDS ORDERED: DEXTROSE 50% 50 ML SYRINGE IV PRN (14:30)
[2021-11-29] MEDS ORDERED: GLUCOSE 10 TAB/TUBE PO PRN (14:30)
[2021-11-29] MEDS ORDERED: GLUCOSE 40% GEL 15 GM TUBE PO PRN (14:30)
[2021-11-29] MEDS ORDERED: GLUCAGON FOR INJ 1 MG VIAL IM PRN (14:30)
[2021-11-29] MEDS: ceFAZolin 2000MG 2,000 MG/15 ML SYR IV SCH ×2 (15:31→23:39)
[2021-11-29] MEDS: ACETAMINOPHEN 500 MG TAB PO SCH ×2 (15:32→23:40)
[2021-11-29] MEDS ORDERED: amLODIPine BESYLATE 5 MG TAB PO SCH (17:00)
[2021-11-29] MEDS: INSULIN ASPART PER UNIT SC SCH ×3 (17:58→20:45)
[2021-11-29] MEDS ORDERED: hydrALAZINE 10 MG TAB PO PRN ×2 (18:29→18:33)
[2021-11-29] MEDS: HEPARIN SOD 5,000 UNIT/0.5 ML VIAL SQ SCH (19:57)
[2021-11-29] MEDS ORDERED: hydrALAZINE HCL 20 MG/ML VIAL IV ONE (22:22)
--- NOTE | 2021-11-29 22:24 | Communication Note ---
Date of Service: November 29, 2021 I was contacted by RN that this patient was noted to have elevated blood pressure. The patient is noted to be status post right sided laparoscopic hand-assisted nephrectomy. The patient did receive 10 mg of p.o. hydralazine approximately 2 hours ago. Despite this modality the patient's blood pressure remains elevated at 191/99. RN notes his heart rate is in the 80s and his pain is well controlled. Review of patient's home medication list shows that he does take Norvasc 10 mg daily which has been resumed. He also takes hydrochlorothiazide 12.5 mg daily as well as lisinopril 40 mg daily, both of which are currently on hold. I suspect his elevated blood pressures likely due to holding of several of his BP meds as noted above. Due to his elevated blood pressure will change the as needed oral hydralazine to intravenous giving 5 mg at this time and monitoring his blood pressure.
[2021-11-29] MEDS ORDERED: dilTIAZem HCl 60 MG TAB PO ONE (23:37)
--- NOTE | 2021-11-29 23:41 | Communication Note ---
Date of Service: November 29, 2021 I was notified by RN that patient received 5 mg of IV hydralazine approximate 30 minutes ago. Despite this modality the patient's blood pressure remains elevated at 195/95. Heart rate is 84. I visited with the patient at the bedside. He notes that his postoperative pain is well controlled. I question the patient about his home blood pressure medic theodore. He does take Norvasc 10 mg daily, hydralazine 12.5 mg daily, and lisinopril 40 mg daily. The patient notes that he was instructed to hold all of these medications this morning, therefore he did not receive any of his usual blood pressure medications. He also notes that his blood pressure typically runs with a systolic of approximately 160. At the time my visit the patient was resting comfortably and again noted his postoperative pain is well controlled. He denied any headache or visual changes. He also denied any chest pain. Due to the patient's persistently elevated blood pressure, I did consult with Dr. Cuevas of the [facility] physician group hospitalist. We discussed the case and he notes that with the heart rate range that the patient is running and may be beneficial to initiate a short-term calcium channel linh such as Cardizem. I therefore ordered 60 mg of Cardizem to be given orally at this time. We will assess the patient's response to this with further recommendations to follow.
--- NOTE | 2021-11-29 23:51 | Hospitalist Consultation ---
Date of Consultation November 29, 2021 Assessment & Plan (1) HTN (hypertension): 56yo male with a history of HTN, DM2, hypothyroidism, GERD, and right renal mass presented to [facility] on 11/29/21 for elective right radical nephrectomy. The hospitalist service was consulted for BP management. Hypertension Elevated BP likely multifactorial including pain, recovery from surgery, and home antihypertensives held d/t operation Patient is without signs/symptoms of hypertensive emergency Received hydralazine 5mg IV, after which BP was still elevated to 195/95 with a HR of 84 Recommend cardizem 60mg PO (x1) now Recommend discontinuing amlodipine and starting cardizem 30mg PO qid As long as renal function is adequate on morning BMP, recommend resuming patient's home lisinopril (40mg qd) and HCTZ (12.5mg qd) Continue pain control Rest of management per primary team Supervising Physician Co-Signing Physician Notes Attending addendum: I have physically seen this patient, have supervised the medical residents activities, and agree with the H&P unless as otherwise noted. Assessment and Plan: Uncontrolled hypertension/status post nephrectomy- Has been given hydralazine 10 mg IV then 5 mg IV by primary service, without significant improvement Recommend Cardizem 60 mg p.o. x1 now, then 30 mg p.o. q. ID Will hold amlodipine due to relative tachycardia Hold lisinopril/HCTZ until laboratory stabilized in a.m. Blood pressure remains uncontrolled, will transfer to telemetry for IV Lopressor We will follow during hospital stay History of Present Illness Attending Physician: Alvin Boogie MD History of Present Illness 56yo male with a history of HTN, DM2, hypothyroidism, GERD, and right renal mass presented to [facility] on 11/29/21 for elective right radical nephrectomy. Patient was advised to hold his home antihypertension regimen prior to surgery. The operation earlier today was without complications. Patient's postoperative pain is well-controlled at this time, but patient was noted with elevated BP to the 190s/100s. The hospitalist service was consulted for BP management. I discussed this with patient, who feels well overall at this time. Patient denies headache, changes in vision, CP, SOB, nausea, vomiting, lightheadedness, dizziness, or other symptoms. Allergies Allergy/AdvReac Type Severity Reaction Status Date / Time No Known Allergies Allergy Unverified 11/29/21 06:12 Home Medications Medication Instructions Recorded Confirmed Type aspirin 81 mg tablet,delayed 81 mg PO DAILY #90 tabs 09/19/21 11/29/21 Rx release hydrochlorothiazide 12.5 mg tablet 12.5 mg PO DAILY #30 tabs 09/19/21 11/29/21 Rx lisinopril 40 mg tablet 40 mg PO DAILY #90 tabs 09/19/21 11/29/21 Rx potassium chloride 10 mEq 10 meq PO DAILY #30 tabs 09/19/21 11/29/21 Rx tablet,extended release (Klor-Con) levothyroxine 150 mcg tablet 150 mcg PO DAILY #30 tabs 11/21/21 11/29/21 Rx atorvastatin 40 mg tablet (Lipitor) 40 mg PO DAILY 11/29/21 11/29/21 History pantoprazole 40 mg tablet,delayed 40 mg PO DAILY 11/29/21 11/29/21 History release (Protonix) diltiazem HCl 120 mg 120 mg PO DAILY #30 caps 11/30/21 Rx capsule,extended release 24 hr (Cardizem CD) oxycodone 5 mg tablet 5 mg PO Q6H #10 tabs 11/30/21 Rx Patient History Medical History Borderline diabetic Hgb A1C 6.6 on 08/18/21 GERD (gastroesophageal reflux disease) Hyperlipidemia Hypertension Hypothyroid Renal mass, right Surgical History S/P ear surgery left x 5; deaf in left ear Family History Sister Breast cancer Cancer Heart disease Father Cancer Myocardial infarction Heart disease Mother Cancer Denies family history of Ovarian cancer Prostate cancer Lung cancer Hypertension Stroke Social History Smoking Status: Never smoker Second Hand Exposure: No; Hx Alcohol Use: No Hx Substance Use: No Preferred Language: Guyanese Communication Ability: Effective Visual Impairment: Limited Spray Booth Operator Required: No Beliefs That Will Affect Care: None marital status: Current Living Situation: Significant Other current occupational status: unemployed How many Children do You have: 2 Feels Safe at Home: Yes Childhood Exposure to Second-Hand Smoke: No caffeine: Yes Dental Care, Regularly: Yes Seatbelt Use: always Sunscreen Use: No Assistive Devices: None Physical Exam Physical Exam: Constitutional: tired-appearing, no acute distress HEENT: MMM CV: regular rhythm, no murmur appreciated, extremities well-perfused, no LE edema Resp: CTABL, no wheezes/rales/rhonchi appreciated, no increased work of breathing GI: soft, nondistended, moderate generalized tenderness, BS present Neuro: alert, oriented, no focal neurologic deficit appreciated Results & Data Results & Data ([facility]) Vital Signs (Past 12 Hours) Vital Signs Temp Pulse Pulse Pulse Resp BP Pulse Ox 11/29/21 23:02 84 194/95 H 11/29/21 21:55 37.4 C 83 14 191/99 H 97 11/29/21 22:40 83 183/95 H 11/29/21 22:05 87 175/98 H 11/29/21 22:00 87 191/93 H 11/29/21 21:00 84 184/101 H 11/29/21 19:17 36.7 C 80 14 183/100 H 98 11/29/21 18:18 184/105 H 11/29/21 17:19 70 70 16 171/97 H 97 11/29/21 16:45 168/103 H 11/29/21 15:49 36.5 C 77 20 98 11/29/21 14:30 36.5 C 86 16 152/92 H 97 11/29/21 14:00 36.5 C 97 H 16 148/84 H 97 11/29/21 13:40 97 H 14 168/88 H 97 11/29/21 13:30 95 H 15 156/86 H 96 11/29/21 13:20 96 H 16 156/85 H 96 11/29/21 13:10 94 H 18 164/87 H 96 11/29/21 13:00 93 H 15 162/88 H 96 11/29/21 12:50 89 15 153/86 H 95 11/29/21 12:40 36.8 C 95 H 16 160/82 H 96 11/29/21 12:30 88 18 150/85 H 98 11/29/21 12:20 82 20 153/83 H 98 11/29/21 12:10 80 18 159/95 H 100 11/29/21 12:03 36.6 C 86 16 149/100 H 100 O2 Del Method O2 Flow Rate 11/29/21 23:02 11/29/21 21:55 Room Air 11/29/21 22:40 11/29/21 22:05 11/29/21 22:00 11/29/21 21:00 11/29/21 19:17 Room Air 11/29/21 18:18 11/29/21 17:19 Room Air 11/29/21 16:45 11/29/21 15:49 11/29/21 14:30 Room Air 11/29/21 14:00 Room Air 11/29/21 13:40 Room Air 11/29/21 13:30 Room Air 11/29/21 13:20 Room Air 11/29/21 13:10 Room Air 11/29/21 13:00 Room Air 11/29/21 12:50 Room Air 11/29/21 12:40 Room Air 11/29/21 12:30 Room Air 11/29/21 12:20 Room Air 11/29/21 12:10 Oxymask 4 08/30/22 12:03 Oxymask 6 Resident Activity Tracking Resident Involvement: Resident Care Provided and Living Manager Coverage Note Care Provided: Adult Hospital Medicine
[2021-11-30] MEDS: HYDROmorphone INJ 0.5 MG/0.5 ML SYR IV PRN (03:18)
[2021-11-30] MEDS: ACETAMINOPHEN 500 MG TAB PO SCH ×2 (05:57→14:26)
[2021-11-30] MEDS ORDERED: LEVOTHYROXINE SODIUM 150 MCG TABLET PO SCH (06:30)
[2021-11-30 07:08] LABS: Basophils # (auto) 0.01 K/uL (0-0.2); Basophils % (auto) 0.1 %; Eosinophils # (auto) 0.06 K/uL (0-0.50); Eosinophils % (auto) 0.5 %; Hematocrit (blood only) 41.3 % (40.1-51.0); Hemoglobin 13.9 g/dl (14.0-18.0); Immature Granulocytes # (auto) 0.05 K/uL (0.00-0.02); Immature Granulocytes % (auto) 0.4 %; Lymphocytes # (auto) 1.22 K/uL (1.2-3.4); Lymphocytes % (auto) 9.6 %; Mean Corpuscular Hemoglobin 28.8 pg (25.0-34.0); Mean Corpuscular Hgb Conc 33.7 g/dL (32.0-36.0); Mean Corpuscular Volume 85.5 fL (80.0-100.0); Mean Platelet Volume 10.2 fL (9.4-12.4); Monocytes # (auto) 0.84 K/uL (0.24-0.82); Monocytes % (auto) 6.6 %; Neutrophils # (auto) 10.49 K/uL (1.4-6.5); Neutrophils % (auto) 82.8 %; Platelet Count 208 K/uL (130-400); RDW Coefficient of Variation 12.8 % (11.5-14.5); RDW Standard Deviation 39.6 fL (36.4-46.3); Red Blood Count 4.83 M/uL (4.63-6.08); White Blood Count 12.67 K/ul (4.8-10.8)
--- NOTE | 2021-11-30 07:29 | Urology Progress Note ---
Date of Service November 30, 2021 Assessment & Plan (1) Renal mass, right: Plan: Doing well s/p hand-assisted right radical nephrectomy on 11/29/2021 for right renal mass, suspected to be renal cell carcinoma. We reviewed postop goals, specifically tolerating a diet, ambulating and having his pain well controlled on oral medications prior to going home. I think there is a good chance he will be ready for discharge this afternoon. (2) HTN (hypertension): Plan: Blood pressure is not at goal, still remains elevated despite hydralazine and diltiazem. Appreciate hospitalist assistance. We will also try to have him follow-up with his PCP to review blood pressure medications now that he has a solitary kidney. Admission and Anticipated Discharge Date Admission Date: November 29, 2021 Subjective Feeling well this morning Tolerating a diet without nausea or vomiting Has not been ambulating yet Still having some right-sided abdominal pain and periincisional tenderness Blood pressures have been elevated despite treatment with hydralazine, his amlodipine and was given diltiazem overnight. Hospitalists were consulted for assistance with management. Hemoglobin stable this morning Creatinine 1.22 Review of Systems Review of Systems: No fevers or chills Physical Exam Physical Exam: Well-appearing, NAD Respiratory: Breathing comfortably on room air, no audible wheezing Gastrointestinal (Abdomen): Soft, appropriately tender Genitourinary: Arguello catheter in place draining clear urine Results & Data ([facility]) Vital Signs (Past 12 Hours) Vital Signs Temp Pulse Pulse Resp BP Pulse Ox O2 Del Method 11/30/21 03:08 37.0 C 91 H 16 188/99 H 97 Room Air 11/30/21 00:14 87 195/99 H 11/30/21 00:00 86 189/102 H 11/29/21 23:02 84 194/95 H 11/29/21 21:55 37.4 C 83 14 191/99 H 97 Room Air 11/29/21 22:40 83 183/95 H 11/29/21 22:05 87 175/98 H 11/29/21 22:00 87 191/93 H 11/29/21 21:00 84 184/101 H PG Care Time/CCT Total # of Minutes Spent Total Time Spent with Patient: Total time spent is greater than 50% in coordination of care (as documented) at patient's floor/unit and/or counseling patient: Coding Level of Care Code None Diagnoses Renal mass, right N28.89 HTN (hypertension) I10
[2021-11-30 07:53] LABS: BUN Creatinine Ratio 10.7 (10-20); Calcium 9.2 mg/dl (8.5-10.1); Creatinine Clr Calc Pharmacy 83.3 ml/min; Est GFR (African American) 77.4 ml/min; Est GFR (Non-African American) 66.8 ml/min; Potassium 3.8 mmol/L (3.5-5.1)
[2021-11-30 08:08] LABS: Estimated Average Glucose 137 mg/dl; Hemoglobin A1C 6.4 % (4.5-5.6)
--- NOTE | 2021-11-30 08:36 | Pharmacy Report ---
Glycemic Ortho Sign Off Note - Date of Service November 30, 2021 - Scope Glycemic Pharmacist consulted for glycemic control and to write orders per [facility] inpatient glycemic control protocol. - Objective Accuchecks BSG (last 24hrs):: 11/29/21 11/29/21 11/29/21 12:16 17:36 20:29 Glucose 208 H POC Glucose 168 H 137 H 11/30/21 11/30/21 06:58 08:08 Glucose 121 H POC Glucose 108 H HbA1c:: Hemoglobin A1c 6.4 % (4.5-5.6) H 11/30/21 06:58 - Assessment * Pt is maintained with diet only as anoutpatient with excellent control per recent A1c * Patient refusing insulin while inpatient, will leave Novolog correction factor only * Low stress weight based insulin dosing appropriate since patient has minimal risk factors for insulin resistance (i.e. no steroids). * Appropriate to DC insulin and resume outpatient antidiabetic regimen at discharge (diet-controlled) * Goal is to maintain BSGs <200 mg/dl (ideally <150 mg/dl) to prevent post op complications - Plan For Inpatient Glycemic Control * Basal insulin * Not needed based on A1c, pre-op BSGs, and minimal risk factors for insulin resistance * Bolus insulin * Utilize low stress weight based NovoLog parameters per scale ACHS (correction factor only) * Pharmacy has entered glycemic orders and is signing off of the glycemic consult. We will no longer be making adjustments to inpatient regimen. Please feel free to re-consult if needed. Thank you.
[2021-11-30] MEDS: dilTIAZem HCL 30 MG TAB PO SCH ×2 (08:40→12:53)
[2021-11-30] MEDS: INSULIN ASPART PER UNIT SC SCH ×2 (08:40→13:32)
[2021-11-30] MEDS: HEPARIN SOD 5,000 UNIT/0.5 ML VIAL SQ SCH (08:41)
[2021-11-30] MEDS: LACTATED RINGER'S 1,000 ML IV SCH (08:44)
[2021-11-30] MEDS ORDERED: PANTOprazole 40 MG TAB PO SCH (09:00)
[2021-11-30] MEDS ORDERED: ATORVASTATIN 40 MG TAB PO SCH (09:00)
[2021-11-30] MEDS ORDERED: amLODIPine BESYLATE 5 MG TAB PO SCH (09:00)
[2021-11-30] MEDS ORDERED: lisinopril 40 MG TAB PO SCH (11:45)
--- NOTE | 2021-11-30 11:54 | Hospitalist Progress Note ---
Date of Service November 30, 2021 Assessment & Plan (1) HTN (hypertension): Plan: Elevated BP likely multifactorial including pain, recovery from surgery, and home antihypertensives held d/t operation Patient is without signs/symptoms of hypertensive emergency Received hydralazine 5mg IV w/o improvement, then given Cardizem 60mg POx1 but overnight resident and started on Cardizem 30mg QID Continued pain control advised as well as low Na/low caffeine diet BP slightly accelerated this AM but not nearly as bad as yesterday-would resume his Lisinopril and HCTZ as his renal function is stable Would transition him to Cardizem CD 120mg daily upon discharge, rx sent to his pharmacy Follow up with PCP for BP recheck as outpatient. His repeat BP this AM after meds as 138/71 (2) GERD (gastroesophageal reflux disease): Plan: Continue Protonix (3) Hypothyroid: Plan: Continue Levothyroxine (4) Renal mass: Plan: s/p R nephrectomy by Dr. Boogie on 11/29 Plan From medicine standpoint, pt is acceptable for d/c. Hospitalist team will sign off but please feel free to notify if any questions/concerns should arise. Thank you for allowing us to participate in the care of your patient. Plan will be d/w Dr. Montiel. Admission and Anticipated Discharge Date Admission Date: November 29, 2021 Subjective Patient seen on daily rounds this morning. He is resting in bedside chair, reports no complaints other than some incisional soreness. No n/v. Tolerating oral intake. Asking when his catheter can be removed. He denies headache, vision changes, chest pain, or dyspnea. He admits to consuming large amounts of soda/caffeine and salt. BP this AM elevated to 178 systolic but this was prior to med administration. Review of Systems Review of Systems: All systems reviewed and are unremarkable except as noted in HPI and below. Denies fever, chills, fatigue, headache, nasal congestion, sore throat, cough, chest pain, shortness of breath, palpitations, orthopnea, PND, n/v/d, constipat ion, dysuria, hematuria, frequency, back pain, joint pain or swelling, easy bruising or bleeding, skin lesions or rashes. Physical Exam Physical Exam: GENERAL: 56 yo Well-developed, well-nourished middle aged WM. NAD. LUNGS: Clear to auscultation bilaterally. No W/R/R. CARDIOVASCULAR: Regular rate and rhythm. ABDOMEN: Soft, non-tender and non-distended. BS normoactive x 4 quad. : Arguello in place draining clear yellow urine EXTREMITIES: No edema. Non-tender. Peripheral pulses +2/4. NEUROLOGIC: A&O x3. Nonfocal PSYCHIATRIC: Cooperative. Appropriate mood and affect. SKIN: Warm, dry, intact. No rashes or lesions. Results & Data Results & Data ([facility]) Vital Signs (Past 12 Hours) Vital Signs Temp Pulse Pulse Resp BP Pulse Ox O2 Del Method 11/30/21 08:23 Room Air 11/30/21 07:00 36.9 C 80 18 178/89 H 95 Room Air 11/30/21 03:08 37.0 C 91 H 16 188/99 H 97 Room Air 11/30/21 00:14 87 195/99 H 11/30/21 00:00 86 189/102 H Laboratory Results 11/30/21 06:58 11/30/21 06:58 PG Care Time/CCT Total # of Minutes Spent Total Time Spent with Patient: Total time spent is greater than 50% in coordination of care (as documented) at patient's floor/unit and/or counseling patient: Coding Level of Care Code 10541 Subseq Hosp Care Lvl 2 Diagnoses HTN (hypertension) I10 GERD (gastroesophageal reflux disease) K21.9 Hypothyroid E03.9 Renal mass N28.89
[2021-11-30] MEDS ORDERED: hydroCHLOROthiazide 25 MG TAB PO SCH (12:00)
--- NOTE | 2021-11-30 14:22 | Discharge Summary ---
Date of Service November 30, 2021 Admission HPI Per Admitting Provider This is a 56-year-old male with history of incidentally discovered right-sided renal mass. He was seen in the urology office for discussion of removal. He presented to the OR on 11/29/2021 for hand-assisted laparoscopic right radical nephrectomy. See operative report for full details of the operation. He was admitted postoperatively in good condition. Admission Exam Per Admitting Provider Constitutional: well developed and well nourished; no acute distress Eyes: + anicteric sclerae; pupils not irregula r Respiratory: normal respiratory effort; no respiratory distress, does not use accessory muscles and no cough Cardiovascular: well perfused Gastrointestinal (Abdomen): Inspection/Auscultation: abdomen normal to inspection; abdomen not distended Musculoskeletal: Extremities: extremities normal to inspection Skin: normal turgor; no rashes and no lesions Neurologic: moves all extremities and awake Psychiatric: Orientation: alert and oriented x 3 Principal Diagnosis Renal mass, concerning for renal cell carcinoma Discharge Exam Well-appearing, NAD Respiratory Breathing comfortably on room air Gastrointestinal (Abdomen) Abdomen soft, appropriately tender. Incisions with Dermabond in place. Discharge Data Allergies Allergy/AdvReac Type Severity Reaction Status Date / Time No Known Allergies Allergy Unverified 11/29/21 06:12 Consultations 11/29/21 23:38 Consult Hospitalist Routine Procedures Performed Actual Procedures p Right Side Laparoscopic Hand Assisted Nephrectomy(Right) - Alvin Boogie MD Hospital Course (1) Renal mass, right: He underwent hand-assisted laparoscopic radical nephrectomy on 11/29/2021. Postoperatively he was admitted to the hospital. By postop day #1 he was tolerating a diet, ambulating and his pain was controlled on oral medications. He was discharged home in good condition. (2) HTN (hypertension): Prior to his surgery he was instructed to hold his blood pressure medications. Postoperatively his blood pressure was elevated. On postop day 1 he resumed his regular medications after it was confirmed that his renal function was normal. Blood pressure returned to a well-controlled range prior to discharge. He was instructed to follow-up with his primary care physician to review blood pressure medications as an outpatient. Total Time Total Time Spent Total Time Spent (In Minutes): 15 Total Time Includes: Examination of the Patient, Discharge Planning and Medication Reconciliation Discharge Plan Discharge Items Patient Disposition: Home - Self-Care Reason For Visit: Renal Mass Discharge Diagnosis: Right renal mass, suspicious for renal cell carcinoma Activity: Per Instructions section Lifting: No more than 10 pounds Non-emergency contact: Urologist Call non-emergency contact if: your pain is not controlled and your temperature is above 101 Follow-up/Referrals: Israel Casey DO [Primary Care Provider] - Diet: Regular Addtl Attending Provider Instructions: The surgery you had was: Hand-assisted laparoscopic radical nephrectomy Please take all medications as prescribed and keep all follow-ups as scheduled. Please call our office at [phone] with any questions, concerns or need to reschedule appointments for any reason. We are happy to assist you. Medications: Take Tylenol every 6 hours for baseline pain control If you were prescribed narcotics such as oxycodone, please take it according to the instructions on the label. Activity/Recovering at home: We recommend having someone with you for the first few days after surgery to help care for you. It is okay to shower today. Please avoid swimming, bathing or using hot tub until incisions are well healed (~2 weeks) Avoid driving until you are not requiring any pain medication. Walk at least a few times a day. Increase your distance, as you feel able. Stairs in your home are okay. Please avoid strenuous or sexual activity until your follow-up. No lifting anything more than 10 pounds for 8 weeks Use a stool softener (i.e. Colace) to prevent constipation, especially the first two weeks post operatively and especially if you are taking narcotic pain medication. You should not be straining/pushing to have a bowel movement. Follow-up: We will have you come to the urology office in ~3 weeks for a wound check. If we have not called you to discuss pathology, we will go over it at that time. Call [facility] Urology at [phone] if you experience: Chest pain or trouble breathing (call [phone] or go to the hospital). Fever of 101F or higher Symptoms of infection at incision site, including redness or swelling, warmth, or bad-smelling drainage Pain that is not controlled with medicines Pending Studies at Discharge: No Stand-Alone Forms: My [facility] [place], Smoking Cessation Medications and DC Order Prescriptions: New diltiazem HCl [Cardizem CD] 120 mg capsule,extended release 24hr 120 mg PO DAILY Qty: 30 0RF oxycodone 5 mg tablet 5 mg PO Q6H Qty: 10 0RF Rx Instructions: for acute post-surgical pain not managed by tylenol Continued levothyroxine 150 mcg tablet 150 mcg PO DAILY Qty: 30 1RF aspirin 81 mg tablet,delayed release (DR/EC) 81 mg PO DAILY Qty: 90 3RF lisinopril 40 mg tablet 40 mg PO DAILY Qty: 90 3RF hydrochlorothiazide 12.5 mg tablet 12.5 mg PO DAILY Qty: 30 2RF potassium chloride [Klor-Con 10] 10 mEq tablet extended release 10 meq PO DAILY Qty: 30 2RF atorvastatin [Lipitor] 40 mg tablet 40 mg PO DAILY pantoprazole [Protonix] 40 mg tablet,delayed release (DR/EC) 40 mg PO DAILY Discontinued meloxicam [Mobic] 7.5 mg tablet 7.5 mg PO DAILY amlodipine [Norvasc] 10 mg tablet 10 mg PO DAILY Discharge Orders: Discharge Order (Routine); Ordered 11/30/21 Ordered By: Alvin Boogie Admission Data Admit Date/Time: 11/29/21 12:08 Attending Provider: Alvin Boogie Admit Provider: Alvin Boogie Primary Care Provider: Israel Casey Other Providers: Hilton Campos ; Rose Hayes ; Timothy Waterman ; Rory Ortez ; Kieran Cole ; Del Fletcher ; Larry Guzmán ; Mini Kirk ; Alexandra Galicia ; Geoffrey Romero ; Mira Jules ; Terrance Raygoza ; Catarino Cortez ; Mily Ortega ; Susy Miles ; Mireille Pederson ; Bo Gage ; Ez Stock ; Rose Alonso ; Ayo Bello ; Manuel Jordan ; Timothy Morris ; Suzie Kenney ; Radha Falcon ; Giacomo Montiel ; Tori Claros ; James Johnson ; Kieran Rodrigues ; Joseph Estrella ; Alex Stover ; Vanna Bell ; Иван Orantes Coding Level of Care Code D/C DAY MANAGEMENT <30 MINS Diagnoses Renal mass, right N28.89 HTN (hypertension) I10
--- NOTE | 2021-11-30 20:57 | Billing Data ---
Date of Service November 30, 2021 Coding Level of Care Code 68436 Inpt Consult Level 3
== END 2021-11-30 16:16 | disposition home or self-care (01) ==
LOC: ASU 05:52 → 3N 12:08 → INTOOBSV 12:08